=== PATIENT | male | born 1940 | race Hispanic/Latino ===

== ENCOUNTER 2018-11-18 12:48 | Outpatient (CLI) | payer MEDICARE | END 2018-11-18 12:49 | disposition home or self-care (01) | LOC: LAB 12:48 ==

== ENCOUNTER 2018-11-25 11:07 | Outpatient (CLI) | payer MEDICARE | END 2018-11-25 11:08 | disposition home or self-care (01) | LOC: RAD 11:07 ==

== ENCOUNTER 2019-01-07 06:12 | Outpatient (CLI) | payer MEDICARE | END 2019-01-07 06:13 | disposition home or self-care (01) | LOC: CARDIO 06:12 ==

== ENCOUNTER 2019-01-22 09:21 | Outpatient (CLI) | payer MEDICARE | END 2019-01-22 09:22 | disposition home or self-care (01) | LOC: PAT 09:21 ==

== ENCOUNTER 2019-01-25 06:41 | Inpatient (IN) | payer MEDICARE ==
[2019-01-07 09:11] VITALS: BMI 29.4
[2019-01-25] MEDS ORDERED: Lidocaine PF 2% (5 ml) Inj (For Cardiac Arrhy) ONE (06:54)
[2019-01-25] MEDS ORDERED: Heparin 2,000 ML IV ONE (06:54)
[2019-01-25] MEDS ORDERED: Nitroglycerin 50mg in D5W 50 MG/250 ML BOTTLE IV ONE (06:54)
[2019-01-25] MEDS ORDERED: Iodixanol 320 MG/ML 100 ML BOTTLE IV ONE ×3 (06:54→10:47)
[2019-01-25] MEDS ORDERED: Iodixanol 320 MG/ML 200 ML BOTTLE IV ONE (06:54)
[2019-01-25] MEDS ORDERED: Midazolam 2 MG/2 ML VIAL ONE ×2 (07:38→08:04)
[2019-01-25] MEDS ORDERED: Propofol 10 mg/ml 1,000 MG/100 ML VIAL ONE (07:43)
[2019-01-25] MEDS ORDERED: Propofol 10 mg/ml Inj (20 ML) ONE ×2 (10:19→10:55)
[2019-01-25] MEDS: HYDROmorphone 0.5 mg/0.5 ml ISec IVP PRN ×3 (11:29→12:04)
[2019-01-25] MEDS ORDERED: Sodium Chloride 0.9% 1,000 ML IV SCH (11:30)
[2019-01-25] MEDS ORDERED: HYDROmorphone 0.5 mg/0.5 ml ISec ONE ×3 (11:32→12:08)
--- NOTE | 2019-01-25 13:47 | CP.PCM.CON ---
<Colmean Hernandez - Last Filed: 01/25/19 14:04> History of Present Illness - History of Present Illness History of Present Illness: Coleman Hernandez DO, PGY-1 MICU Consult Note for Dr. Mata Reason for consult: s/p endovascular repair of AAA HPI: Patient is a 78 year old male with PMH of PVD (w/ chronic LLE venous ulcer), glaucoma, COPD, CAD (s/p PCI w REYMUNDO x 2), Hep C, DM2, and OA who presented to interventional radiology today for endovascular repair of AAA identified on prior CT angiogram as part of work up for prior LLE bypass. He was found to have a significant AAA, measuring 13 x 6.5 x 6.1 cm and an additional 2.5 cm aneurysm in the distal SFA. He is now s/p endovascular repair of this AAA. He has no complaints at this time and denies CP, SOB, abd pain/nausea/vomiting, AVILA, vision changes, or urinary complaints. 12 point ROS otherwise negative except as specified above. PMD: Dr. Tejada Past Medical History: PVD (w/ chronic LLE venous ulcer), glaucoma, COPD, CAD (s/p PCI w REYMUNDO x 2), Hep C, DM2, and OA Past Surgical History: hydrocele repair, skin CA removal on neck, splenectomy, LLE bypass graft Allergies: NKA Family History: siblings both have DM2 Social History: current everyday light cigarette smoker (1/2 PPD) for > 30 years, denies current or prior EtOH or illicit drug use Past Patient History - CARDIAC Hx Pacemaker: No - PULMONARY Hx Chronic Obstructive Pulmonary Disease (COPD): Yes - NEUROLOGICAL Hx Paralysis: No - HEMATOLOGICAL/ONCOLOGICAL Hx Blood Transfusions: No Hx Blood Transfusion Reaction: (NA) - MUSCULOSKELETAL/RHEUMATOLOGICAL Hx Musculoskeletal Disorders: Yes - PSYCHIATRIC Hx Emotional Abuse: No Hx Physical Abuse: No Hx Substance Use: No - SURGICAL HISTORY Hx Surgeries: Yes - ANESTHESIA Hx Anesthesia Reactions: No Hx Malignant Hyperthermia: No Meds Allergies/Adverse Reactions: Allergies Allergy/AdvReac Type Severity Reaction Status Date / Time No Known Allergies Allergy Verified 01/22/19 11:44 - Medications Medications: Current Medications Acetaminophen (Tylenol 325mg Tab) 650 mg PO Q4 PRN PRN Reason: Pain, Mild (1-3) Aspirin (Aspirin) 325 mg PO DAILY [facility] Glyburide (Micronase) 5 mg PO DAILY [facility] Hydromorphone HCl (Dilaudid) 0.5 mg IVP Q15M PRN PRN Reason: Pain, Moderate/Severe (4-10) Last Admin: 01/25/19 12:04 Dose: 0.5 mg Metformin HCl (Glucophage) 500 mg PO DAILY [facility] Bimatoprost [Lumigan (] (Home Med)) 2.5 ml OP HS [facility] Combigan Eye Drops ((Home Med)) 1 drop OS BID [facility] Ursodiol [Lam Forte ] 500 Mg (Home Med) 500 mg PO BID [facility] Ondansetron HCl (Zofran Inj) 4 mg IVP Q6H PRN PRN Reason: Nausea/Vomiting Oxycodone/Acetaminophen (Percocet 5/325 Mg Tab) 1 tab PO Q4H PRN PRN Reason: Pain, moderate (4-7) Stop: 01/28/19 11:48 Thiamine HCl (Vitamin B1 Tab) 100 mg PO DAILY [facility] Physical Exam - Constitutional Appears: Non-toxic, No Acute Distress - Head Exam Head Exam: ATRAUMATIC, NORMOCEPHALIC - Eye Exam Eye Exam: EOMI, PERRL - ENT Exam ENT Exam: Mucous Membranes Moist - Neck Exam Neck exam: Positive for: Full Rom, Normal Inspection. Negative for: Lymphadenopathy, Thyromegaly - Respiratory Exam Respiratory Exam: Clear to Auscultation Bilateral, NORMAL BREATHING PATTERN. absent: Accessory Muscle Use, Rales, Rhonchi, Wheezes, Respiratory Distress - Cardiovascular Exam Cardiovascular Exam: REGULAR RHYTHM, RRR, +S1, +S2. absent: Diastolic murmur, Gallop, Rubs, Systolic Murmur - GI/Abdominal Exam GI & Abdominal Exam: Normal Bowel Sounds, Soft. absent: Guarding, Rebound, Tenderness - Exam Exam: Circumcision, NORMAL INSPECTION - Extremities Exam Extremities exam: Positive for: full ROM. Negative for: pedal edema Additional comments: insertion sites covered with dressings in groin b/l, no surrounding erythema or exudate - Neurological Exam Neurological exam: Alert, Oriented x3 - Psychiatric Exam Psychiatric exam: Normal Affect, Normal Mood - Skin Skin Exam: Dry, Intact, Warm Results - Vital Signs Recent Vital Signs: Last Vital Signs Temp 98.2 F 01/25/19 12:06 Pulse 64 01/25/19 12:06 Resp 26 H 01/25/19 12:06 BP 130/75 01/25/19 12:06 Pulse Ox 94 L 01/25/19 07:05 Assessment & Plan - Assessment and Plan (Free Text) Assessment: 78 yo M with PMH of PVD (w/ chronic LLE venous ulcer), glaucoma, COPD, CAD (s/p PCI w REYMUNDO x 2), Hep C, DM2, and OA admitted to MICU for close monitoring following endovascular repair of AAA. Plan: Neuro: AAOx3, no focal deficit, moving extremities past midline, able to protect airway Reorient as necessary Cardio: RRR, normotensive Keep patient supine following IR procedure as per protocol Continue ASA 325 mg daily, repeat labs in AM Monitor peripheral pulses Monitor b/l insertion sites Percocet PRN for pain Close cardiac monitoring overnight Maintain MAP > 65 Additional recs per IR Pulm: Able to protect airway, SpO2 > 90% on room air No active issues Endo: Maintain euglycemia GI: Re-introduce PO intake following procedure per IR recs /Nephro: Labs reviewed from 01/22/19, renal function parameters stable Continue to monitor parameters s/p IR procedure Heme/Onc: Labs reviewed from 01/22/19, H/H appears stable Monitor for s/sx HD compromise ID: Afebrile, no leukocytosis Monitor for s/sx of infection DVT/GI PPX: SCD overnight/ GI ppx not indicated Full Code Diabetic diet Monitor in MICU Patient seen, examined with, and plan confirmed with my attending Dr. Esperanza Hernandez, DMario IM Resident PGY-1 Pager: [phone] <Vimal Mata - Last Filed: 01/25/19 15:52> Meds - Medications Medications: Current Medications Acetaminophen (Tylenol 325mg Tab) 650 mg PO Q4 PRN PRN Reason: Pain, Mild (1-3) Aspirin (Aspirin) 325 mg PO DAILY [facility] Glyburide (Micronase) 5 mg PO DAILY [facility] Hydromorphone HCl (Dilaudid) 0.5 mg IVP Q15M PRN PRN Reason: Pain, Moderate/Severe (4-10) Last Admin: 01/25/19 12:04 Dose: 0.5 mg Metformin HCl (Glucophage) 500 mg PO DAILY [facility] Bimatoprost [Lumigan (] (Home Med)) 2.5 ml OP HS [facility] Combigan Eye Drops ((Home Med)) 1 drop OS BID [facility] Ursodiol [Lam Forte ] 500 Mg (Home Med) 500 mg PO BID [facility] Ondansetron HCl (Zofran Inj) 4 mg IVP Q6H PRN PRN Reason: Nausea/Vomiting Oxycodone/Acetaminophen (Percocet 5/325 Mg Tab) 1 tab PO Q4H PRN PRN Reason: Pain, moderate (4-7) Stop: 01/28/19 11:48 Thiamine HCl (Vitamin B1 Tab) 100 mg PO DAILY [facility] Results - Vital Signs Recent Vital Signs: Last Vital Signs Temp 98.2 F 01/25/19 12:06 Pulse 64 01/25/19 12:06 Resp 26 H 01/25/19 12:06 BP 130/75 01/25/19 12:06 Pulse Ox 94 L 01/25/19 07:05 Assessment & Plan - Assessment and Plan (Free Text) Plan: I saw the patient and examined with the resident, agree with consult note, with following additions/exceptions: Patient is 78yo male with PMH of PVD (w/ chronic LLE venous ulcer), glaucoma, COPD, CAD (s/p PCI w REYMUNDO x 2), Hep C, DM2, and OA s/p endovascular repair of AAA identified on prior CT angiogram as part of work up for prior LLE bypass. He was found to have a significant AAA, measuring 13 x 6.5 x 6.1 cm and an additional 2.5 cm aneurysm in the distal SFA. He is now s/p endovascular repair of this AAA. Pt currently afebrile, HD stable, comfortable in NAd, doing well, watching TV Labs, imaging, chart reviewed Monitor peripheral pulses FS control BP control Follow up IR ASA GI ppx DVT ppx Monitor in MICU
[2019-01-25] MEDS ORDERED: URSODIOL 500 MG PO SCH (18:00)
[2019-01-25] MEDS ORDERED: COMBIGAN EYE OS SCH (18:00)
--- NOTE | 2019-01-25 18:59 | VASCULAR ---
PROCEDURE: 1. Infrarenal AAA bifurcated stent graft repair 2. Right common iliac and internal iliac artery stent graft repair 3. Left internal iliac artery embolization HISTORY: Unruptured AAA. Bilateral common iliac artery aneurysms. Bilateral internal iliac artery aneurysms. PHYSICIAN(S): Yonathan Méndez MD. Henry Gibbs MD TECHNIQUE: he relative risks and indications for the procedure were explained to the patient and informed written consent obtained. The patient was placed supine on the arteriography table and the abdomen and groins prepped and draped in the usual sterile fashion. Conscious sedation and monitoring was provided out the procedure by anesthesiology Under ultrasound guidance, the common femoral arteries were punctured with a micropuncture set. Two Perclose devices were deployed in each groin. 7 Indonesian sheaths were placed. A 5 Indonesian selective catheter was advanced over the bifurcation and placed in the left internal iliac artery aneurysm at the takeoff of the superior gluteal artery. Coil embolization was performed with multiple 810 and 12 mm 0.035 Karen coils. The catheter was placed the thoracic aorta support wire placed. The 19 Indonesian main body sheath was placed on the right. A 30 mm snare was placed on the left. The GABRIELLE 28-120/I 16-40 main body was advanced over the support wire from the right groin. The contralateral wire was easily snared and brought out the left groin. The main body was deployed at the bifurcation. A pigtail catheter was placed at the level renal arteries. A 34-34/C100 proximal extension was deployed at the level of the renal arteries. From the left groin a selective catheter was placed in the right superior gluteal artery. An 8 Indonesian 65 cm destination sheath was placed in the distal right internal iliac artery. A BBx stent graft 8 mm x 79 mm was deployed the distal right internal iliac artery. In a coaxial fashion, an 8 HELEN by 59 mm VBX stent graft was placed from the aortic bifurcation into the proximal right internal iliac artery. Bilateral I20-13/C88 iliac extensions were placed from the common iliac arteries to the proximal external iliac arteries. There was an endoleak on the right. This was treated with balloon inflation of the internal iliac artery stent grafts and Coda balloon dilatation of the common and external iliac artery stent grafts. No endoleak was noted on the left. Completion angiograms were obtained. The sheaths were removed and hemostasis obtained with a Perclose devices. The patient tolerated the procedure well. IMPRESSION: 1) Endologics bifurcated AAA stent graft repair as described above. 2. 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 3. Left internal iliac artery embolization.
--- NOTE | 2019-01-25 21:21 | HP ---
HISTORY OF PRESENT ILLNESS: The patient is a 78-year-old man with a past medical history of abdominal aortic aneurysm and PVD with chronic nonhealing LLE ulcer who presented for electively scheduled endovascular repair of his AAA and revascularization of his lower extremity. He was taken to the IR suite with Dr. Yonathan Méndez where he underwent successful repair of his AAA. He tolerated the procedure well and no postprocedure complications were noted. He was subsequently transferred to the ICU for continued monitoring and postoperative care. PAST MEDICAL HISTORY: As per HPI, also type 2 diabetes mellitus, CAD s/p PCI with stent placement x 2, COPD, glaucoma, and history of hepatitis C s/p clearance and OA. PAST SURGICAL HISTORY: Bilateral cataract removal, splenectomy, repair of hydrocele, surgical excision of precancerous skin lesion and LLE vascular bypass. ALLERGIES: NKDA. MEDICATIONS: Glucovance 5/500 mg p.o. b.i.d., Dorzolamide ophthalmic solution 3 drops daily, Combigan ophthalmic solution 2 drops daily and Lumigan ophthalmic solution 1 drop daily. FAMILY HISTORY: Noncontributory. SOCIAL HISTORY: The patient reports a [id number] smoking history and former alcohol use. He denies illicit drug abuse. REVIEW OF SYSTEMS: A 12-point review of systems is negative except as per HPI. PHYSICAL EXAMINATION: VITAL SIGNS: T 98.2, P 64, BP 130/75, RR 26 and O2 saturation 98% on 2 L nasal cannula. GENERAL: No apparent distress. HEENT: PERRL. EOMI. No scleral icterus. No conjunctival pallor. NECK: No JVD. No bruits. LUNGS: Clear to auscultation. CARDIOVASCULAR: Regular rate and rhythm. Normal S1 and S2. No murmurs. ABDOMEN: Normoactive bowel sounds, soft, nontender, and nondistended. EXTREMITIES: No edema. Distal pulse intact. NEUROLOGIC: Awake, alert, and oriented x 3. No focal motor deficits. LABORATORY DATA: No new labs. ASSESSMENT: The patient is a 78-year-old man with multiple medical comorbidities who presented for electively scheduled endovascular repair of abdominal aortic aneurysm. PLAN: 1. Abdominal aortic aneurysm s/p endovascular repair. Input from Dr. Yonathan Méndez noted. Continue with postprocedure care as per Dr. Méndez. Monitor in ICU with frequent pulse checks. 2. CAD s/p PCI with stent placement. Continue Aspirin 325 mg p.o. daily. The patient is off statin therapy due to history of myopathy. 3. Type 2 diabetes mellitus. Continue Metformin 500 mg p.o. daily and Glyburide 5 mg p.o. daily. 4. COPD. Continue supplemental oxygen and bronchodilators as needed. 5. Glaucoma. Continue home ophthalmic solutions. 6. History of hepatitis C s/p clearance. 7. Prophylaxis. GI prophylaxis not indicated as the patient is eating and DVT prophylaxis not indicated as the patient is ambulatory. CODE STATUS: Full code. Maicol Tejada MD MTDD
[2019-01-25] MEDS ORDERED: BIMATOPROST OP SCH (22:00)
[2019-01-25] MEDS: Oxycodone/Acetaminophen 5/325 mg Tab PO PRN (23:05)
[2019-01-26] MEDS: Oxycodone/Acetaminophen 5/325 mg Tab PO PRN ×2 (02:30→07:00)
[2019-01-26 06:51] LABS: MEAN CELL VOLUME 99.7 fl (80.0-105.0); MEAN CORPUSCULAR HEMOGLOBIN 31.7 pg (25.0-35.0); MEAN CORPUSCULAR HGB CONC 31.7 g/dl (31.0-37.0); MEAN PLATELET VOLUME 10.3 fl (7.0-11.0); RBC 3.79 10^6/uL (3.5-6.1); RED CELL DISTRIBUTION WIDTH 14.1 % (11.5-14.5); WHITE BLOOD COUNT 7.5 10^3/uL (4.5-11.0)
[2019-01-26 07:10] LABS: BLOOD UREA NITROGEN 15 mg/dL (7-21); CALCIUM 8.4 mg/dL (8.4-10.5); GFR NON-AFRICAN AMERICAN > 60
[2019-01-26 07:27] VITALS: TEMP 98.2
[2019-01-26 07:35] VITALS: O2SAT 96
--- NOTE | 2019-01-26 09:28 | PN ---
SUBJECTIVE: The patient was seen and examined at the bedside in the ICU. No acute events overnight. He remains afebrile, hemodynamically stable and is doing well s/p endovascular repair of his abdominal aortic aneurysm. This morning he feels well, is tolerating his diet and is looking forward to discharge home. OBJECTIVE: VITAL SIGNS: T 98.2, P 94, BP 122/57, RR 22 and O2 saturation 96% on 2 liters nasal cannula. GENERAL: No apparent distress. HEENT: PERRL, EOMI. No scleral icterus. No conjunctival pallor. NECK: No JVD. No bruits. LUNGS: Clear to auscultation. CARDIOVASCULAR: Regular rate and rhythm. Normal S1, S2. No murmurs. ABDOMEN: Normoactive bowel sounds, soft, nontender, nondistended. EXTREMITIES: No edema. Distal pulses intact. NEUROLOGIC: Awake, alert and oriented x 3. No focal motor deficits. LABORATORY DATA: WBC 7.5, hemoglobin 12, hematocrit 38, platelets 146. Sodium 134, potassium 4.1, chloride 103, bicarb 27, BUN 15, creatinine 0.8, glucose 89. ASSESSMENT: The patient is a 78-year-old man with multiple medical comorbidities who presented for electively scheduled endovascular repair of abdominal aortic aneurysm. PLAN: 1. Abdominal aortic aneurysm s/p endovascular repair. Input from Dr. Yonathan Méndez noted. The patient remains clinically stable and with no postprocedure complications. 2. CAD s/p PCI with stent placement. Continue Aspirin 325 mg p.o. daily. The patient is off statin therapy due to history of myopathy. 3. Type 2 diabetes mellitus. Continue Metformin 500 mg p.o. daily and Glyburide 5 mg p.o. daily. 4. COPD. Continue supplemental oxygen and bronchodilators as needed. 5. Glaucoma. Continue home ophthalmic solutions. 6. History of hepatitis C s/p clearance. 7. Prophylaxis. GI prophylaxis not indicated as the patient is eating. DVT prophylaxis not indicated as the patient is ambulatory. CODE STATUS: Full code. Maicol Tejada MD CARLY
[2019-01-26] MEDS ORDERED: GLYBURIDE PO SCH (10:00)
[2019-01-26] MEDS ORDERED: [UNRECOGNIZED DRUG - OTHER] PO SCH (10:00)
[2019-01-26] MEDS ORDERED: METFORMIN HCL PO SCH (10:00)
--- NOTE | 2019-01-26 10:50 | CP.CCUPN ---
<Coleman Hernandez - Last Filed: 01/26/19 10:58> CCU Subjective - Physician Review Subjective (Free Text): Coleman Hernandez DO, PGY-1 MICU Progress Note for Dr. Mata Patient was seen and examined at bedside this AM. He offers no new complaints and states he is tolerating regular diet well without nausea/vomiting. He denies fever/chills, CP, SOB, abd pain/nausea/vomiting, or urinary complaints. CCU Objective - Vital Signs / Intake & Output Vital Signs (Last 4 hours): Vital Signs Pulse Resp BP Pulse Ox 01/26/19 08:00 94 H 01/26/19 07:30 95 H 24 122/57 L 96 01/26/19 07:20 105 H 19 95 01/26/19 07:15 93 H 18 129/82 98 01/26/19 07:10 95 H 23 98 01/26/19 07:00 101 H 26 H 134/64 97 01/26/19 06:50 92 H 19 97 Intake and Output (Last 8hrs): Intake & Output 01/25/19 01/26/19 01/26/19 22:59 06:59 14:59 Intake Total 960 180 Output Total 1400 150 Balance -440 30 Weight 212 lb 6 oz Intake: IV 600 Left Forearm 600 Oral 360 180 Output: Urine 1400 150 Urethral (Russell) 1400 150 Other: # Bowel Movements 0 - Physical Exam Head: Positive for: Atraumatic, Normocephalic Pupils: Positive for: PERRL Extroacular Muscles: Positive for: EOMI Mouth: Positive for: Moist Mucous Membranes Pharnyx: Positive for: Normal. Negative for: ERYTHEMA, EXUDATE Nose (Internal): Positive for: Normal Inspection Neck: Positive for: Normal Range of Motion. Negative for: JVD Respiratory/Chest: Positive for: Clear to Auscultation. Negative for: Wheezes, Rales, Retracting, Rhonchi, Tachypneic Cardiovascular: Positive for: Regular Rate and Rhythm, Normal S1, S2. Negative for: Murmurs, Rub, Gallop Abdomen: Positive for: Normal Bowel Sounds, Other (b/l insertion sites in the groin covered with dressing without surrounding erythema, hematoma, or other concerning findings). Negative for: Tenderness, Rebound, Guarding Back: Positive for: Normal Inspection Upper Extremity: Positive for: Normal Inspection. Negative for: Cyanosis, Edema Lower Extremity: Positive for: Normal Inspection. Negative for: Edema Neurological: Positive for: GCS=15, CN II-XII Intact, Speech Normal, Motor Func Grossly Intact, Gait Normal Skin: Positive for: Warm, Dry Psychiatric: Positive for: Alert, Oriented x 3, Normal Insight, Normal Concentration - Medications Active Medications: Active Medications Generic Name Dose Route Start Last Admin Trade Name Freq PRN Reason Stop Dose Admin Acetaminophen 650 mg 01/25/19 11:47 Tylenol 325mg Tab PO Q4 PRN Pain, Mild (1-3) Aspirin 325 mg 01/26/19 10:00 Aspirin PO DAILY [facility] Famotidine 40 mg 01/26/19 22:00 Pepcid PO HS [facility]RA Glyburide 5 mg 01/26/19 10:00 Micronase PO DAILY [facility]RA Hydromorphone HCl 0.5 mg 01/25/19 11:30 01/25/19 12:04 Dilaudid IVP 0.5 mg Q15M PRN Administration Pain, Moderate/Severe (4-10) Metformin HCl 500 mg 01/26/19 10:00 Glucophage PO DAILY MAYRA Bimatoprost [Lumigan 0 ml 01/25/19 22:00 01/25/19 21:25 ] (Home Med) OP 1 ml HS MAYRA Administration Combigan Eye Drops 1 drop 01/25/19 18:00 01/25/19 18:46 (Home Med) OS 1 drop BID MAYRA Administration Ursodiol [Lam Forte 500 mg 01/25/19 18:00 ] 500 Mg (Home PO Med) BID MAYRA Ondansetron HCl 4 mg 01/25/19 11:47 Zofran Inj IVP Q6H PRN Nausea/Vomiting Oxycodone/Acetaminophen 1 tab 01/25/19 11:47 01/26/19 07:00 Percocet 5/325 Mg Tab PO 01/28/19 11:48 1 tab Q4H PRN Administration Pain, moderate (4-7) Thiamine HCl 100 mg 01/26/19 10:00 Vitamin B1 Tab PO DAILY MAYRA - Patient Studies Lab Studies: Lab Studies 01/26/19 01/26/19 01/25/19 Range/Units 06:40 06:40 17:52 WBC 7.5 D (4.5-11.0) 10^3/uL RBC 3.79 (3.5-6.1) 10^6/uL Hgb 12.0 L (14.0-18.0) g/dL Hct 37.8 L (42.0-52.0) % MCV 99.7 (80.0-105.0) fl MCH 31.7 (25.0-35.0) pg MCHC 31.7 (31.0-37.0) g/dl RDW 14.1 (11.5-14.5) % Plt Count 146 (120.0-450.0) 10^3/uL MPV 10.3 (7.0-11.0) fl Sodium 134 (132-148) mmol/L Potassium 4.1 (3.6-5.0) mmol/L Chloride 103 (98-107) mmol/L Carbon Dioxide 27 (21-33) mmol/L Anion Gap 8 L (10-20) BUN 15 (7-21) mg/dL Creatinine 0.8 (0.8-1.5) mg/dl Est GFR ( Amer) > 60 Est GFR (Non-Af Amer) > 60 POC Glucose (mg/dL) 124 H (65-110) mg/dL Random Glucose 89 (70-110) mg/dL Calcium 8.4 (8.4-10.5) mg/dL 01/25/19 Range/Units 16:33 WBC (4.5-11.0) 10^3/uL RBC (3.5-6.1) 10^6/uL Hgb (14.0-18.0) g/dL Hct (42.0-52.0) % MCV (80.0-105.0) fl MCH (25.0-35.0) pg MCHC (31.0-37.0) g/dl RDW (11.5-14.5) % Plt Count (120.0-450.0) 10^3/uL MPV (7.0-11.0) fl Sodium (132-148) mmol/L Potassium (3.6-5.0) mmol/L Chloride (98-107) mmol/L Carbon Dioxide (21-33) mmol/L Anion Gap (10-20) BUN (7-21) mg/dL Creatinine (0.8-1.5) mg/dl Est GFR ( Amer) Est GFR (Non-Af Amer) POC Glucose (mg/dL) 65 (65-110) mg/dL Random Glucose (70-110) mg/dL Calcium (8.4-10.5) mg/dL Laboratory Results - last 24 hr 01/25/19 01/25/19 01/26/19 16:33 17:52 06:40 WBC 7.5 D RBC 3.79 Hgb 12.0 L Hct 37.8 L MCV 99.7 MCH 31.7 MCHC 31.7 RDW 14.1 Plt Count 146 MPV 10.3 Sodium Potassium Chloride Carbon Dioxide Anion Gap BUN Creatinine Est GFR ( Amer) Est GFR (Non-Af Amer) POC Glucose (mg/dL) 65 124 H Random Glucose Calcium 01/26/19 06:40 WBC RBC Hgb Hct MCV MCH MCHC RDW Plt Count MPV Sodium 134 Potassium 4.1 Chloride 103 Carbon Dioxide 27 Anion Gap 8 L BUN 15 Creatinine 0.8 Est GFR ( Amer) > 60 Est GFR (Non-Af Amer) > 60 POC Glucose (mg/dL) Random Glucose 89 Calcium 8.4 Radiology Impressions: Radiology Impressions Interventional Vascular Procedure 01/25/19 06:46 IMPRESSION: 1) Endologics bifurcated AAA stent graft repair as described above. 2. 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 3. Left internal iliac artery embolization. Critical Care Progress Note - Nutrition Nutrition: Nutrition Category Date Time Status Consistent Carbohydrate [DIET] Diets 01/25/19 Dinner Ordered Assessment/Plan - Assessment and Plan (Free Text) Assessment: 78 yo M with PMH of PVD (w/ chronic LLE venous ulcer), glaucoma, COPD, CAD (s/p PCI w REYMUNDO x 2), Hep C, DM2, and OA admitted to MICU for close monitoring follow ing endovascular repair of AAA. Plan: Patient remained afebrile, RRR, normotensive overnight. Tolerating regular diet well without nausea/vomiting. SCDs administered overnight. Ambulating without difficulty Plan clarified with Dr. Tejada and Dr. Méndez All agree safe for discharge today. Patient seen, examined with, and plan confirmed with my attending Dr. Esperanza Hernandez D.O. IM Resident PGY-1 Pager: [phone] <iVmal Mata - Last Filed: 01/26/19 12:58> CCU Objective - Vital Signs / Intake & Output Intake and Output (Last 8hrs): Intake & Output 01/25/19 01/26/19 01/26/19 22:59 06:59 14:59 Intake Total 960 180 Output Total 1400 150 Balance -440 30 Weight 212 lb 6 oz Intake: IV 600 Left Forearm 600 Oral 360 180 Output: Urine 1400 150 Urethral (Russell) 1400 150 Other: # Bowel Movements 0 - Patient Studies Lab Studies: Lab Studies 01/26/19 01/26/19 01/25/19 Range/Units 06:40 06:40 17:52 WBC 7.5 D (4.5-11.0) 10^3/uL RBC 3.79 (3.5-6.1) 10^6/uL Hgb 12.0 L (14.0-18.0) g/dL Hct 37.8 L (42.0-52.0) % MCV 99.7 (80.0-105.0) fl MCH 31.7 (25.0-35.0) pg MCHC 31.7 (31.0-37.0) g/dl RDW 14.1 (11.5-14.5) % Plt Count 146 (120.0-450.0) 10^3/uL MPV 10.3 (7.0-11.0) fl Sodium 134 (132-148) mmol/L Potassium 4.1 (3.6-5.0) mmol/L Chloride 103 (98-107) mmol/L Carbon Dioxide 27 (21-33) mmol/L Anion Gap 8 L (10-20) BUN 15 (7-21) mg/dL Creatinine 0.8 (0.8-1.5) mg/dl Est GFR ( Amer) > 60 Est GFR (Non-Af Amer) > 60 POC Glucose (mg/dL) 124 H (65-110) mg/dL Random Glucose 89 (70-110) mg/dL Calcium 8.4 (8.4-10.5) mg/dL 01/25/19 Range/Units 16:33 WBC (4.5-11.0) 10^3/uL RBC (3.5-6.1) 10^6/uL Hgb (14.0-18.0) g/dL Hct (42.0-52.0) % MCV (80.0-105.0) fl MCH (25.0-35.0) pg MCHC (31.0-37.0) g/dl RDW (11.5-14.5) % Plt Count (120.0-450.0) 10^3/uL MPV (7.0-11.0) fl Sodium (132-148) mmol/L Potassium (3.6-5.0) mmol/L Chloride (98-107) mmol/L Carbon Dioxide (21-33) mmol/L Anion Gap (10-20) BUN (7-21) mg/dL Creatinine (0.8-1.5) mg/dl Est GFR ( Amer) Est GFR (Non-Af Amer) POC Glucose (mg/dL) 65 (65-110) mg/dL Random Glucose (70-110) mg/dL Calcium (8.4-10.5) mg/dL Laboratory Results - last 24 hr 01/25/19 01/25/19 01/26/19 16:33 17:52 06:40 WBC 7.5 D RBC 3.79 Hgb 12.0 L Hct 37.8 L MCV 99.7 MCH 31.7 MCHC 31.7 RDW 14.1 Plt Count 146 MPV 10.3 Sodium Potassium Chloride Carbon Dioxide Anion Gap BUN Creatinine Est GFR ( Amer) Est GFR (Non-Af Amer) POC Glucose (mg/dL) 65 124 H Random Glucose Calcium 01/26/19 06:40 WBC RBC Hgb Hct MCV MCH MCHC RDW Plt Count MPV Sodium 134 Potassium 4.1 Chloride 103 Carbon Dioxide 27 Anion Gap 8 L BUN 15 Creatinine 0.8 Est GFR ( Amer) > 60 Est GFR (Non-Af Amer) > 60 POC Glucose (mg/dL) Random Glucose 89 Calcium 8.4 Radiology Impressions: Radiology Impressions Interventional Vascular Procedure 01/25/19 06:46 IMPRESSION: 1) Endologics bifurcated AAA stent graft repair as described above. 2. 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 3. Left internal iliac artery embolization. Critical Care Progress Note - Nutrition Nutrition: Nutrition Category Date Time Status Consistent Carbohydrate [DIET] Diets 01/25/19 Dinner Ordered Assessment/Plan - Assessment and Plan (Free Text) Plan: I saw the patient and examined with the resident, agree with consult note, with following additions/exceptions: Patient is 78yo male with PMH of PVD (w/ chronic LLE venous ulcer), glaucoma, COPD, CAD (s/p PCI w REYMUNDO x 2), Hep C, DM2, and OA s/p endovascular repair of AAA identified on prior CT angiogram as part of work up for prior LLE bypass. He was found to have a significant AAA, measuring 13 x 6.5 x 6.1 cm and an additional 2.5 cm aneurysm in the distal SFA. He is now s/p endovascular repair of this AAA. Pt currently afebrile, HD stable, comfortable in NAd, doing well, watching TV Stable for discharge
[2019-01-26 16:19] VITALS: BP 115/50; PULSE 92; RESP 21
--- NOTE | 2019-01-27 01:13 | DS ---
ADMITTING DIAGNOSIS: Abdominal aortic aneurysm. DISCHARGE DIAGNOSIS: Abdominal aortic aneurysm s/p endovascular repair. SECONDARY DIAGNOSES: PVD with chronic nonhealing left lower extremity ulcer, type 2 diabetes mellitus, CAD s/p PCI with stent placement, COPD, glaucoma, history of hepatitis C s/p clearance and osteoarthritis. CONSULTATIONS: Dr. Yonathan Méndez (Interventional Radiology) and Dr. Mata (Pulmonary & Critical Care Medicine). IMAGING STUDIES: None. DIAGNOSTIC STUDIES: None. PROCEDURES: 1. Endovascular repair of abdominal aortic aneurysm. HISTORY OF PRESENT ILLNESS: The patient is a 78-year-old man with a past medical history of abdominal aortic aneurysm who presented for electively scheduled endovascular repair of his AAA. He was taken to the IR suite with Dr. Yonathan Méndez where he underwent successful repair of his abdominal aortic aneurysm and was subsequently transferred to the ICU for continued monitoring and postoperative care. HOSPITAL COURSE: Upon transfer to the ICU the patient was closely monitored with frequent pulse checks. His ICU stay was unremarkable and no postprocedure complications were noted. The following day he was tolerating his p.o. diet, ambulating around the ICU and offered no complaints. Due to his clinical stability he was cleared for discharge home. CONDITION: Good, improved. DISPOSITION: Home. DISCHARGE MEDICATIONS: Glucovance 5/500 mg p.o. b.i.d., Dorzolamide ophthalmic solution 3 drops daily, Combigan ophthalmic solution 2 drops daily and Lumigan ophthalmic solution 1 drop daily. DISCHARGE INSTRUCTIONS: The patient was advised to adhere to postprocedure instructions as per Dr. Méndez. He was also advised that if he develops any fevers, chills, rigors, cyanosis, coolness, paresthesias or anesthesia to his lower extremities to present PMD or to the nearest ED immediately. FOLLOWUP: The patient is to follow up with his PMD within 1 week of discharge. The patient is to follow up with Dr. Méndez as scheduled. Maicol Tejada MD [facility]
== END 2019-01-26 11:30 | disposition home or self-care (01) | DRG 269 ==
LOC: SDAINP 06:41 → EDSTATUS 07:30 → ICU 12:29
PROVIDERS: ADMIT Radiology Vascular & Interventional Radiology; ATTEND Student in an Organized Health Care Education/Training Program
PROC: 04V03D6 (ICD-10-PCS; principal; 2019-01-25)
PROC: 04VF3DZ Restriction of Left Internal Iliac Artery with Intraluminal Device, Percutaneous Approach (ICD-10-PCS; 2019-01-25)
DX: I71.4 Abdominal aortic aneurysm, without rupture (principal); L97.929 Non-pressure chronic ulcer of unspecified part of left lower leg with unspecified severity; I72.3 Aneurysm of iliac artery; E11.51 Type 2 diabetes mellitus with diabetic peripheral angiopathy without gangrene; E11.622 Type 2 diabetes mellitus with other skin ulcer; I25.10 Atherosclerotic heart disease of native coronary artery without angina pectoris; J44.9 Chronic obstructive pulmonary disease, unspecified; F17.210 Nicotine dependence, cigarettes, uncomplicated; H40.9 Unspecified glaucoma; M19.90 Unspecified osteoarthritis, unspecified site; Z95.5 Presence of coronary angioplasty implant and graft; Z79.84 Long term (current) use of oral hypoglycemic drugs; Z86.19 Personal history of other infectious and parasitic diseases